=== PATIENT | male | born 1965 | race Caucasian/White ===

== ENCOUNTER 2022-01-30 13:56 | Inpatient (IN) ==
[2022-01-30] MEDS ORDERED: lisinopriL 10 MG TABLET PO STA (14:35)
[2022-01-30 16:23] LABS: Basophils % 0.4 % (0.0-0.8); Eosinophils # 0.1 10*3/uL (0.0-0.87); Eosinophils % 0.8 % (0.00-10.9); Hematocrit 48.4 VOL% (42.0-52.0); Immature Granulocytes % 1.1 %; Immature Granulocytes Absolute 0.09 #; Lymphocytes # 2.3 10*3/uL (1.4-4.0); Lymphocytes % 27.6 % (21.2-54.2); Mean Corpuscular HGB Conc 35.1 GM/DL (32-36); Mean Corpuscular Volume 93.1 FL (87-102); Mean Platelet Volume 9.2 FL (9.6-12.0); Monocytes % 8.8 % (1.7-12.7); Neutrophils % 61.3 % (38.7-73.9); Platelet Count 146 T/CUMM (130-400); Red Cell Distribution Width 12.9 % (9.3-17.3); White Blood Count 8.4 T/CUMM (4-12)
[2022-01-30 16:36] LABS: Mucus,Urine Occasional /LPF (Occasional); RBC,Urine 2 /HPF (0-4)
[2022-01-30 16:38] LABS: Bilirubin,Urine Negative (Negative); Blood, Urine Moderate mg/dL (Negative); Glucose,Urine (UA) Negative (Negative); Ketones,Urine Negative (Negative); Nitrite,Urine Negative (Negative); Protein,Urine Negative (Negative); Urine Appearance Clear (Clear); Urine Color Yellow (Yellow); Urine Urobilinogen 0.2 eU/dL (<2.0); Urine pH 5.5 (4.5-8.0)
[2022-01-30 16:40] LABS: Albumin 3.6 G/DL (3.4-5.0); Bilirubin,Total 0.7 MG/DL (0.20-1.00); Calcium 8.8 MG/DL (8.5-10.1); Potassium 4.5 MMOL/L (3.5-5.1); Total Protein 7.5 G/DL (6.4-8.2)
[2022-01-30] MEDS ORDERED: DILTIAZEM 25 MG/5 ML VIAL IV ONE (16:45)
[2022-01-30] MEDS ORDERED: DILTIAZEM 50 MG/10 ML VIAL IV STA (16:46)
[2022-01-30] MEDS ORDERED: ONDANSETRON 4 MG/2 ML VIAL IV PRN (17:38)
[2022-01-30] MEDS ORDERED: DOCUSATE SODIUM 100 MG CAPSULE PO PRN (17:38)
[2022-01-30] MEDS ORDERED: ZALEPLON 5 MG CAPSULE PO PRN (17:38)
[2022-01-30] MEDS ORDERED: ACETAMINOPHEN 325 MG TABLET PO PRN (17:38)
[2022-01-30] MEDS ORDERED: GLUCAGON 1 MG VIAL IM PRN (17:38)
[2022-01-30 17:44] LABS: Barbiturates Screen,Urine Negative (Negative); Benzodiazepines Screen,Urine Negative (Negative); Cannabinoid Screen,Urine Positive (Negative); Opiate Screen,Urine Negative (Negative); Phencyclidine Screen,Urine Negative (Negative)
[2022-01-30] MEDS: DILTIAZEM INJ 100 MG in SODIUM CHLORIDE 0.9% 100 ML IV SCH (17:45)
[2022-01-30] MEDS ORDERED: LORazepam 2 MG/1 ML VIAL IV PRN (17:49)
[2022-01-30] MEDS ORDERED: DEXTROSE 10% 250 ML BAG IV PRN (17:52)
[2022-01-30] MEDS: chlordiazePOXIDE 25 MG CAPSULE PO SCH (18:27)
[2022-01-30 19:35] LABS: Folate 10.44 NG/ML (5.38-24.0)
[2022-01-30 20:33] LABS: INR 1.2; PT Patient Result 13.5 SECS (10.5-12.0); Partial Thromboplastin Time 30.8 SECS (23.8-32.1)
[2022-01-30] MEDS: ASCORBIC ACID 500 MG TABLET PO SCH (21:08)
[2022-01-30] MEDS: DIVALPROEX 500 MG TABLET PO SCH (21:08)
[2022-01-30] MEDS: DILTIAZEM CD 120 MG CAPSULE PO SCH (21:08)
[2022-01-30] MEDS: OLANZapine 5 MG TABLET PO SCH (21:08)
[2022-01-30] MEDS: ZALEPLON 5 MG CAPSULE PO SCH (21:08)
[2022-01-31] MEDS: chlordiazePOXIDE 25 MG CAPSULE PO SCH ×4 (00:54→17:57)
[2022-01-31] MEDS: DILTIAZEM INJ 100 MG in SODIUM CHLORIDE 0.9% 100 ML IV SCH (03:12)
[2022-01-31 04:57] LABS: Basophils # 0.1 10*3/uL (0.0-0.2); Basophils % 0.8 % (0.0-0.8); Eosinophils # 0.1 10*3/uL (0.0-0.87); Hematocrit 48.6 VOL% (42.0-52.0); Hemoglobin 16.5 GM/DL (14.0-18.0); Immature Granulocytes Absolute 0.09 #; Lymphocytes # 2.9 10*3/uL (1.4-4.0); Lymphocytes % 31.5 % (21.2-54.2); Mean Corpuscular Volume 95.1 FL (87-102); Mean Platelet Volume 9.3 FL (9.6-12.0); Monocytes % 11.7 % (1.7-12.7); Platelet Count 107 T/CUMM (130-400); Red Blood Count 5.11 MC/CUMM (3.8-5.5); White Blood Count 9.2 T/CUMM (4-12)
[2022-01-31 06:58] LABS: Potassium 4.2 MMOL/L (3.5-5.1)
[2022-01-31 07:00] LABS: Calcium 8.7 MG/DL (8.5-10.1)
[2022-01-31 07:06] LABS: Bilirubin,Total 1.5 MG/DL (0.20-1.00); Total Protein 6.9 G/DL (6.4-8.2)
[2022-01-31] MEDS: lisinopriL 20 MG TABLET PO SCH (08:38)
[2022-01-31] MEDS: ASCORBIC ACID 500 MG TABLET PO SCH ×2 (08:38→20:16)
[2022-01-31] MEDS: FOLIC ACID 1 MG TABLET PO SCH (08:38)
[2022-01-31] MEDS: MULTIVITAMIN (CENTRUM) TABLET PO SCH (08:38)
[2022-01-31] MEDS: THIAMINE 100 MG TABLET PO SCH (08:38)
[2022-01-31] MEDS: ASPIRIN EC 325 MG TABLET PO SCH (08:38)
[2022-01-31] MEDS: allopurinoL 300 MG TABLET PO SCH (08:38)
[2022-01-31] MEDS: PANTOPRAZOLE 40 MG TABLET PO SCH (08:38)
[2022-01-31] MEDS ORDERED: ASPIRIN CHEW 81 MG TABLET PO SCH (09:00)
[2022-01-31] MEDS ORDERED: IBUPROFEN 600 MG TABLET PO ONE (15:06)
[2022-01-31] MEDS ORDERED: MAGNESIUM SULF RIDER 2 GM/50 ML PREMIX IV ONE (15:09)
[2022-01-31] MEDS: ZALEPLON 5 MG CAPSULE PO SCH (20:17)
[2022-01-31] MEDS: OLANZapine 5 MG TABLET PO SCH (20:17)
[2022-01-31] MEDS: DILTIAZEM CD 120 MG CAPSULE PO SCH (20:17)
[2022-01-31] MEDS: DIVALPROEX 500 MG TABLET PO SCH (20:17)
[2022-02-01] MEDS: chlordiazePOXIDE 25 MG CAPSULE PO SCH ×3 (03:06→17:22)
[2022-02-01 05:24] LABS: Basophils # 0.1 10*3/uL (0.0-0.2); Basophils % 0.9 % (0.0-0.8); Eosinophils # 0.2 10*3/uL (0.0-0.87); Eosinophils % 2.3 % (0.00-10.9); Hematocrit 45.5 VOL% (42.0-52.0); Hemoglobin 15.5 GM/DL (14.0-18.0); Immature Granulocytes % 0.7 %; Immature Granulocytes Absolute 0.06 #; Lymphocytes # 2.9 10*3/uL (1.4-4.0); Lymphocytes % 34.8 % (21.2-54.2); Mean Corpuscular HGB Conc 34.1 GM/DL (32-36); Mean Corpuscular Volume 96.8 FL (87-102); Mean Platelet Volume 9.7 FL (9.6-12.0); Monocytes % 10.8 % (1.7-12.7); Neutrophils % 50.5 % (38.7-73.9); Platelet Count 106 T/CUMM (130-400); Red Cell Distribution Width 12.9 % (9.3-17.3); White Blood Count 8.2 T/CUMM (4-12)
[2022-02-01 05:45] LABS: Calcium 8.8 MG/DL (8.5-10.1); Osmolality,Calculated 272.8 MOS/KG (273-304); Potassium 3.7 MMOL/L (3.5-5.1)
[2022-02-01 05:58] LABS: Risk Ratio 2.38; VLDL Cholesterol 13.8 MG/DL
[2022-02-01 06:25] LABS: Hepatitis B Core IgM Quant 0.12 Index; Hepatitis B Surface Ag Quant < 0.10 Index; Hepatitis B Surface Ag Result Non-Reactive (NonReactive); Hepatitis C Virus Ab Quant 0.02 Index; Hepatitis C Virus Ab Result Non-Reactive (NonReactive)
[2022-02-01] MEDS ORDERED: POTASSIUM CHLORIDE 20 MEQ TABLET PO ONE (07:20)
[2022-02-01 07:49] LABS: Bilirubin,Direct 0.47 MG/DL (0.0-0.20); Bilirubin,Indirect 1.1 MG/DL (0.0-1.0); Bilirubin,Total 1.6 MG/DL (0.20-1.00); Total Protein 6.8 G/DL (6.4-8.2)
[2022-02-01] MEDS: lisinopriL 20 MG TABLET PO SCH (10:09)
[2022-02-01] MEDS: ASPIRIN EC 325 MG TABLET PO SCH (10:09)
[2022-02-01] MEDS: allopurinoL 300 MG TABLET PO SCH (10:10)
[2022-02-01] MEDS: PANTOPRAZOLE 40 MG TABLET PO SCH (10:10)
[2022-02-01] MEDS: FOLIC ACID 1 MG TABLET PO SCH (10:10)
[2022-02-01] MEDS: ASCORBIC ACID 500 MG TABLET PO SCH ×2 (10:10→21:09)
[2022-02-01] MEDS: THIAMINE 100 MG TABLET PO SCH (10:10)
[2022-02-01] MEDS: MULTIVITAMIN (CENTRUM) TABLET PO SCH (10:12)
[2022-02-01] MEDS ORDERED: RIVAROXABAN 20 MG TABLET PO SCH (17:00)
[2022-02-01] MEDS: ZALEPLON 5 MG CAPSULE PO SCH (21:08)
[2022-02-01] MEDS: DIVALPROEX 500 MG TABLET PO SCH (21:08)
[2022-02-01] MEDS: OLANZapine 5 MG TABLET PO SCH (21:09)
[2022-02-01] MEDS: DILTIAZEM CD 120 MG CAPSULE PO SCH (21:11)
[2022-02-02] MEDS: chlordiazePOXIDE 25 MG CAPSULE PO SCH ×3 (02:07→09:48)
[2022-02-02 04:27] LABS: Basophils # 0.1 10*3/uL (0.0-0.2); Basophils % 0.6 % (0.0-0.8); Eosinophils # 0.3 10*3/uL (0.0-0.87); Eosinophils % 3.1 % (0.00-10.9); Hematocrit 44.6 VOL% (42.0-52.0); Hemoglobin 15.3 GM/DL (14.0-18.0); Immature Granulocytes % 1.1 %; Immature Granulocytes Absolute 0.09 #; Lymphocytes # 2.9 10*3/uL (1.4-4.0); Lymphocytes % 36.3 % (21.2-54.2); Mean Corpuscular HGB Conc 34.3 GM/DL (32-36); Mean Corpuscular Volume 95.9 FL (87-102); Mean Platelet Volume 9.3 FL (9.6-12.0); Neutrophils % 48.9 % (38.7-73.9); Red Blood Count 4.65 MC/CUMM (3.8-5.5); Red Cell Distribution Width 12.7 % (9.3-17.3)
[2022-02-02 04:28] LABS: Platelet Count 114 T/CUMM (130-400)
[2022-02-02 04:52] LABS: Calcium 8.5 MG/DL (8.5-10.1); Osmolality,Calculated 273.8 MOS/KG (273-304)
[2022-02-02] MEDS: MULTIVITAMIN (CENTRUM) TABLET PO SCH (08:57)
[2022-02-02] MEDS: ASPIRIN EC 325 MG TABLET PO SCH (08:57)
[2022-02-02] MEDS: THIAMINE 100 MG TABLET PO SCH (08:58)
[2022-02-02] MEDS: allopurinoL 300 MG TABLET PO SCH (08:58)
[2022-02-02] MEDS: ASCORBIC ACID 500 MG TABLET PO SCH (08:58)
[2022-02-02] MEDS: PANTOPRAZOLE 40 MG TABLET PO SCH (08:58)
[2022-02-02] MEDS: lisinopriL 20 MG TABLET PO SCH (08:58)
[2022-02-02] MEDS: FOLIC ACID 1 MG TABLET PO SCH (08:58)
[2022-02-02 12:27] VITALS: BP 145/98
== END 2022-02-02 12:15 | disposition home or self-care (01) | DRG 201 ==
LOC: N.EDINP 13:56 → N.ED 13:56 → N.TELES 19:30
PROVIDERS: ADMIT Internal Medicine; ATTEND Internal Medicine